=== PATIENT | female | born 1995 | race African-American/Black ===

== ENCOUNTER 2025-05-27 16:29 | Emergency (ER) | payer MEDICAID ==
[~2025-05-27] VITALS: Ht 170.2 cm; Wt 86.0 kg
[2025-05-27 16:39] VITALS: O2SAT 98
[2025-05-27 18:37] LABS: CLARITY URINE CLOUDY (CLEAR); GLUCOSE URINE NEGATIVE (NEGATIVE); KETONES URINE NEGATIVE (NEGATIVE); LEUKOCYTE ESTERASE URINE 2+ (NEGATIVE); NITRITE URINE NEGATIVE (NEGATIVE); OCCULT BLOOD URINE TRACE (NEGATIVE); PH URINE 6.5 (4.5-8.0); PROTEIN URINE 1+ (NEGATIVE); SPECIFIC GRAVITY URINE 1.021 (1.005-1.030); UROBILINOGEN URINE 1.0 E.U./dL (0.2-1.0)
[2025-05-27] MEDS ORDERED: DOCU-138 MT (19:01)
[2025-05-27] MEDS ORDERED: CEPH250C2 MT (19:01)
[2025-05-27 19:04] LABS: COLOR URINE STRAW (YELLOW)
[2025-05-27 19:06] LABS: RBC URINE 0-2 /hpf (0-2); WBC URINE 25-50 /hpf (0-2)
[2025-05-27 19:07] LABS: BACTERIA URINE 1+; MUCUS URINE TRACE /lpf (< = 2+); SQUAMOUS EPITHELIAL CELL URINE 2+ /lpf (RARE/1+)
[2025-05-27 19:18] VITALS: BP 114/70; PULSE 87; RESP 14; TEMP 36.7; O2SAT 100
[2025-05-27 23:13] LABS: UCG KIT EXPIRATION DATE 03-11-2027; UCG KIT LOT# 982192; UCG SCREEN NEGATIVE
== END 2025-05-27 19:20 | disposition home or self-care (01) ==
LOC: ER 16:29
DX: K59.00 Constipation, unspecified (principal); I10 Essential (primary) hypertension; Z98.890 Other specified postprocedural states; Z79.899 Other long term (current) drug therapy
CPT/HCPCS: 81003; 81025; 87077; 87186; 99283